=== PATIENT | female | born 1955 | race Caucasian/White ===

== ENCOUNTER 2022-09-08 08:42 | Emergency (ER) | payer MEDICARE, MEDICAID ==
[~2022-09-08] VITALS: Ht 152.4 cm; Wt 68.2 kg
[2022-09-08 08:54] VITALS: TEMP 98.7
[2022-09-08] MEDS ORDERED: UNKNOWN BP MED PO (08:54)
[2022-09-08] MEDS ORDERED: TraMADol HCL 50 MG TABLET PO ONE (09:30)
[2022-09-08] MEDS ORDERED: TRAM-559 PO (10:16)
[2022-09-08 11:23] VITALS: BP 150/68; PULSE 72; RESP 18
== END 2022-09-08 11:24 | disposition home or self-care (01) ==
LOC: EMS 08:48
DX: S52.502A Unspecified fracture of the lower end of left radius, initial encounter for closed fracture (principal); I10 Essential (primary) hypertension; W18.30XA Fall on same level, unspecified, initial encounter; Y93.89 Activity, other specified; Y92.89 Other specified places as the place of occurrence of the external cause; Y99.8 Other external cause status
CPT/HCPCS: 99283